=== PATIENT | female | born 1955 | race Caucasian/White ===

== ENCOUNTER → 2019-01-24 12:30 | Outpatient (CLI) | payer OTHER, SELFPAY ==
--- NOTE | 2019-01-24 | DI.RAD.S_ITS ---
PROCEDURE: FL SHOULDER INJECTION MR/CT RT INDICATIONS: RIGHT SHOULDER PAIN TECHNIQUE: The indications, alternatives, benefits, risks, and complications of the procedure were explained to the patient. Written informed consent was obtained and placed in the chart. The shoulder was examined fluoroscopically and a site for needle placement chosen for entry into the glenohumeral joint from an anterior approach. The skin was prepped and draped in a sterile fashion, and 1% lidocaine infiltrated from skin down to joint capsule. A spinal needle was inserted into the glenohumeral joint, and a small amount of iodinated contrast media injected to confirm intra-articular placement of the needle tip. This was followed by approximately 12 mL dilute solution of a gadolinium containing MR contrast agent. The needle was removed and a dressing was applied. The patient was given postprocedural instructions and sent to the MR suite for MR imaging. FINDINGS: A single fluoroscopic spot image demonstrates intra-articular location of injected iodinated contrast. IMPRESSION: Successful fluoroscopically guided administration of dilute Gadolinium solution into the shoulder joint for MR arthrogram. Dictated by: Yousif Bar M.D. on 01/24/2019 at 16:45 Approved by: Yousif Bar M.D. on 01/24/2019 at 16:50
--- NOTE | 2019-01-24 | DI.MRI.S_ITS ---
PROCEDURE: MR SHOULDER RT W CON INDICATIONS: RIGHT SHOULDER PAIN TECHNIQUE: After the administration of 12 mL of dilute intra-articular Gadolinium contrast, oblique coronal T1 and T2 spin echo with fat saturation, oblique sagittal T1 spin echo with and without fat saturation, oblique sagittal T2 fast spin echo with fat saturation, axial T1 spin echo with fat saturation through the shoulder. COMPARISON: None. FINDINGS: Image quality: Excellent. Rotator cuff: There is full-thickness rupture of the distal supraspinatus 1.3 cm from its insertion on humeral head with 2.2 cm medial retraction of torn tendon fibers to the level of glenoid. Distal infraspinatus tendinosis is seen. Distal subscapularis tendinosis is also noted. No rotator cuff muscle atrophy on sagittal images. Bones and bursae: No bone marrow contusions or fractures. Nonspecific intraosseous cyst formation in greater tuberosity of humeral head no rotator cuff tendon insertion is seen. [id number] acromioclavicular joint and glenohumeral joint osteoarthritic changes are seen. Capsule and soft tissues: The labrum and glenohumeral ligaments appear intact. The long head of the biceps tendon demonstrates normal location and morphology. The rotator interval appears normal, without fibrosis. The coracohumeral ligament is of normal thickness. No intra-articular bodies. IMPRESSION: 1. Full-thickness rupture of the distal supraspinatus 1.3 cm from its insertion greater tuberosity of humeral head with 2.2 cm medial retraction of torn tendon fibers to the level of the glenoid. Distal infraspinatus and subscapularis tendinosis. 2. Mild to moderate acromioclavicular joint and glenohumeral joint osteoarthritis. 3. No evidence of focal labral tear. Dictated by: Michele Wilkerson M.D. on 01/24/2019 at 16:06 Approved by: Michele Wilkerson M.D. on 01/24/2019 at 16:10
== END ==
PROVIDERS: PCP General Practice; Visit Provider Physician Assistant
DX: M25.511 Pain in right shoulder (principal); M75.121 Complete rotator cuff tear or rupture of right shoulder, not specified as traumatic; M19.011 Primary osteoarthritis, right shoulder
CPT/HCPCS: 23350; 73222; 77002

== ENCOUNTER → 2024-05-08 09:48 | Outpatient (CLI) | payer OTHER, SELFPAY ==
--- NOTE | 2024-05-08 09:54 | DI.CT.S_ITS ---
PROCEDURE: CT LUNG LOW DOSE SCREENING INDICATIONS: TOBACCO USE TECHNIQUE: Noncontrast 2.0-2.5 mm thick sections acquired from the pulmonary apices to the posterior costophrenic angles. 7 mm thick axial MIP, and 5 mm coronal and sagittal reformats were then acquired. For radiation dose reduction, the following was used: automated exposure control, adjustment of mA and/or kV according to patient size. COMPARISON: None. FINDINGS: Image quality: Diagnostic. Several nodules in the left lung most notably in the left upper lobe laterally (series 3, image 80 3 mm, left upper lobe laterally (series 3, image 101), 4 mm. Mild pericardial effusion or pericardial thickening measures up to 9 mm depth anteriorly-inferiorly. No mass, no pleural effusion, no pneumothorax, no lobar consolidation. Mild calcifications of the coronary arteries, aortic arch and descending aorta. [id number] degenerative changes of the thoracic spine with disc space narrowing and osteophytes without CT evidence of fracture, subluxation or central stenosis. Lower Neck: No enlarged lymph nodes. Thyroid: Low-attenuation nodule in the right thyroid lobe measures up to 1.8 cm diameter. If indicated correlation with serum thyroid studies and/or thyroid ultrasound could be performed. Heart: Heart size is normal. Thoracic Vessels: The aorta and pulmonary arteries demonstrate normal size. Mediastinum and Tish: No enlarged lymph nodes. Esophagus: No wall thickening. No hiatal hernia. Upper Abdomen: Visualized upper abdomen solid organs and bowel loops appear normal. IMPRESSION: Mild pericardial effusion or pericardial thickening incidentally noted. Calcifications of the coronary arteries, aortic arch. Several left pulmonary nodules some of which may be postinflammatory as discussed above. LUNG-RADS 2 continued annual screening, if eligible. Dictated by: Orville Jesus M.D. on 05/08/2024 at 15:20 Approved by: Orville Jesus M.D. on 05/08/2024 at 15:53
== END ==
DX: R91.8 Other nonspecific abnormal finding of lung field (principal); I31.39 Other pericardial effusion (noninflammatory); I25.10 Atherosclerotic heart disease of native coronary artery without angina pectoris; I70.0 Atherosclerosis of aorta; E04.1 Nontoxic single thyroid nodule; Z72.0 Tobacco use
CPT/HCPCS: 71271